=== PATIENT | female | born 1970 | race African-American/Black ===

== ENCOUNTER 2016-05-26 18:58 | Emergency (ER) | payer OTHER ==
--- NOTE | 2016-05-26 20:23 | ER Document Report ---
ED Medical Screen (RME) - General Chief Complaint: Abdominal Pain Stated Complaint: ABDOMINAL PAIN Mode of Arrival: Ambulatory Information source: Patient Notes: Patient arrives with complaints of lower abdominal pain that started a few hours ago. Patient states that about a week ago she had some lower abdominal cramping that seemed to go away. Today she had some severe lower abdominal pain. The pain seems to have improved significantly but she still complains of some achiness to the left lower abdomen as well as mid abdomen. She had some nausea with this. No fever. No vaginal bleeding or discharge. She does have an IUD in place. She denies a history of diverticulitis. On her limited abdominal exam completed out in triage, the patient is noted to have left lower and left mid abdominal tenderness on exam. Patient states that she has a prior history of hypertension, she was on medication for this, lost weight and didn't need medication anymore. States last time she had her blood pressure checked was about 8 months ago when she had her gallbladder removed. An initial examination was made on the patient as part of the triage process, and it was determined a more comprehensive evaluation was necessary. Initial labs were ordered and patient was transferred to another provider in the ED who assumed care and finished evaluation and plan. TRAVEL OUTSIDE OF THE [place] IN LAST 30 DAYS: No - Related Data Allergies/Adverse Reactions: No Known Allergies Allergy (Unverified 05/26/16 19:32) Past Medical History Renal/ Medical History: Denies: Hx Peritoneal Dialysis Physical Exam - Vital signs Vitals: Temp Pulse Resp BP Pulse Ox 99.2 F 90 18 227/117 H 99 05/26/16 19:25 05/26/16 19:25 05/26/16 19:25 05/26/16 19:25 05/26/16 19:25 Course - Vital Signs Vital signs: Temp Pulse Resp BP Pulse Ox 99.2 F 90 18 227/117 H 99 05/26/16 19:25 05/26/16 19:25 05/26/16 19:25 05/26/16 19:25 05/26/16 19:25
[2016-05-26 20:44] LABS: HEMATOCRIT 38.9 % (36.0-47.0); HGB HCT DIFFERENCE 0.1; MEAN CORPUSCULAR HEMOGLOBIN 29.2 pg (27.0-33.4); MEAN CORPUSCULAR HGB CONC 33.6 g/dL (32.0-36.0); MEAN CORPUSCULAR VOLUME 87 fl (80-97); RED BLOOD COUNT 4.47 10^6/uL (3.72-5.28); RED CELL DISTRIBUTION WIDTH 13.9 % (11.5-14.0); WHITE BLOOD COUNT 7.4 10^3/uL (4.0-10.5)
[2016-05-26 21:00] LABS: APPEARANCE,URINE CLEAR; BILIRUBIN,URINE NEGATIVE (NEGATIVE); GLUCOSE, URINE NEGATIVE (NEGATIVE); KETONES,URINE NEGATIVE (NEGATIVE); LEUKOCYTE ESTERASE,URINE NEGATIVE (NEGATIVE); NITRITE,URINE NEGATIVE (NEGATIVE); PROTEIN,URINE NEGATIVE (NEGATIVE); URINE SPECIFIC GRAVITY 1.006; UROBILINOGEN,URINE NEGATIVE mg/dL (<2.0)
[2016-05-26 21:01] LABS: ALANINE AMINOTRANSFERASE 31 U/L (9-52); ALBUMIN 4.3 g/dL (3.5-5.0); ALKALINE PHOSPHATASE 64 U/L (38-126); ANION GAP 13 (5-19); ASPARTATE AMINO TRANSFERASE 25 U/L (14-36); BILIRUBIN,DIRECT 0.1 mg/dL (0.0-0.4); BILIRUBIN,TOTAL 0.4 mg/dL (0.2-1.3); BLOOD UREA NITROGEN 12 mg/dL (7-20); CALCIUM 9.6 mg/dL (8.4-10.2); CARBON DIOXIDE 25 mmol/L (22-30); CHLORIDE 102 mmol/L (98-107); CREATININE RESULT 0.77 mg/dL (0.52-1.25); GLUCOSE 85 mg/dL (75-110); LIPASE 35.8 U/L (23-300); SODIUM 139.5 mmol/L (137-145); TOTAL PROTEIN 7.3 g/dL (6.3-8.2)
--- NOTE | 2016-05-26 22:46 | ER Document Report ---
ED GI/ - General Chief Complaint: Abdominal Pain Stated Complaint: ABDOMINAL PAIN Mode of Arrival: Ambulatory Information source: Patient TRAVEL OUTSIDE OF THE [place] IN LAST 30 DAYS: No - HPI Patient complains to provider of: Abdominal pain Notes: 05/26/16 22:44 Patient arrives with complaints of lower abdominal pain that started a few hours ago. Patient states that about a week ago she had some lower abdominal cramping that seemed to go away. Today she had some severe lower abdominal pain. The pain seems to have improved significantly but she still complains of some achiness to the left lower abdomen as well as mid abdomen. She had some nausea with this. No fever. No vaginal bleeding or discharge. She does have an IUD in place. She denies a history of diverticulitis. She denies any chest pain or shortness of breath. She denies any rash. She denies any injury. No blood thinners. She denies any other complaints at this time. - Related Data Allergies/Adverse Reactions: No Known Allergies Allergy (Unverified 05/26/16 19:32) Past Medical History - General Information source: Patient - Social History Smoking Status: Unknown if Ever Smoked Family History: Reviewed & Not Pertinent Patient has suicidal ideation: No Patient has homicidal ideation: No Renal/ Medical History: Denies: Hx Peritoneal Dialysis Review of Systems - Review of Systems -: Yes All other systems reviewed and negative Physical Exam - Vital signs Vitals: Temp Pulse Resp BP Pulse Ox 99.2 F 90 18 227/117 H 99 05/26/16 19:25 05/26/16 19:25 05/26/16 19:25 05/26/16 19:25 05/26/16 19:25 - Notes Notes: GENERAL: alert, cooperative, nontoxic, no distress. HEAD: normocephalic, atraumatic EYES: conjunctiva pink without discharge, no external redness or swelling. EARS: no external swelling, no external redness NOSE: atraumatic, no external swelling MOUTH/THROAT: mucous membranes moist and pink, posterior pharynx without erythema, swelling, exudate. No trismus or drooling. NECK: soft, supple, full range of motion, no meningismus. CHEST: no distress, lungs clear and equal throughout. No wheezing, rales, rhonchi. CARDIAC: regular rate and rhythm, no murmur, normal capillary refill, normal pulses. No peripheral edema noted. ABDOMEN: Soft, mild tenderness to palpation of the left lower quadrant and pubic area. No rebound tenderness or guarding. BACK: full range of motion, no CVA tenderness. EXTREMITIES: full range of motion of all extremities. No redness, no swelling. NEURO: alert and oriented -3, no focal deficits, full range of motion of all extremities. PYSCH: appropriate mood, affect. Patient is cooperative. SKIN: pink, warm, dry, no rash. Course - Re-evaluation Re-evalutation: 05/26/16 23:39 Patient is resting comfortably at this time. Labs and urine are unremarkable at this time. CT shows a 4.8 cm cystic structure near the left ovary. This point an ultrasound of the pelvis with Doppler has been ordered to rule out ovarian torsion. I discussed this with the patient who understands. She will continue to be monitored until we are able to obtain an ultrasound. 05/27/16 01:24 Patient's nontoxic appearing with stable vitals. Ultrasound shows a 5.3 cm left ovarian cyst and uterine fibroid. Discussed this with the patient. I instructed that she needs to follow-up with [facility] as they will need to reevaluate the cyst to ensure that is resolving. She should follow up sooner she develops increased pain, fever, persistent vomiting, or any further concerns. I will discharge patient home with prescription for Voltaren, as she is pain-free at this time. 05/27/16 01:26 The patient is noted to have elevated blood pressure during today's emergency department visit. The patient was informed of this finding. The patient was instructed that this may be related to pre-hypertension and requires further evaluation with a primary care provider. The patient has no hypertensive symptoms at this time. Patient has a history of hypertension. She states she was on medications in the past, but has not been on them for the last several months. Explained that she needs to follow-up with her family doctor regarding her blood pressure to have this reevaluated potentially be started back on medications. She has no hypertensive symptoms at this time. - Vital Signs Vital signs: Temp Pulse Resp BP Pulse Ox 99.2 F 82 18 187/103 H 98 05/26/16 19:25 05/26/16 23:45 05/26/16 23:45 05/26/16 23:45 05/26/16 23:45 - Laboratory Result Diagrams: 05/26/16 20:25 05/26/16 20:25 Laboratory results interpreted by me: 05/26/16 20:25 Urine Blood SMALL H - Diagnostic Test Radiology reviewed: Reports reviewed - CT of the pelvis shows a left ovarian cyst. Ultrasound of the pelvis shows no torsion with a 5.3 cm left ovarian cyst and uterine fibroid. Discharge - Discharge Clinical Impression: Left ovarian cyst Condition: Stable Disposition: HOME, SELF-CARE Instructions: Ovarian Cyst ([facility]) Additional Instructions: Take medications as prescribed as needed. Follow up with [facility] at the next available appointment. He will need a repeat ultrasound in 6-8 weeks to reevaluate the cyst on her left ovary. He should follow-up sooner for increased pain, fever, persistent vomiting, or for any further concerns. Your blood pressure was elevated during today's visit. Have this rechecked with your doctor. Prescriptions: Diclofenac Sodium [Voltaren] 75 mg PO BID #20 tablet.dr Referrals: MICHAEL EWING MD [Primary Care Provider] - Follow up as needed CHRISTINA CHAUDHARY MD [ACTIVE STAFF] - Follow up as needed
[2016-05-26 23:46] VITALS: BP 187/103
== END 2016-05-27 01:34 | disposition home or self-care (01) ==
LOC: ER 18:58
DX: N83.202 Unspecified ovarian cyst, left side (principal); R10.30 Lower abdominal pain, unspecified; D25.9 Leiomyoma of uterus, unspecified; Z97.5 Presence of (intrauterine) contraceptive device
CPT/HCPCS: 36415; 74177; 76830; 80053; 81001; 83690; 84703; 85027; 93976; 99284

== ENCOUNTER 2018-06-01 10:54 | Emergency (ER) | payer MEDICAID, OTHER ==
[2018-06-01] MEDS ORDERED: KETOROLAC TROMETHAMINE INJ/PF 30 MG/1 ML SDV IV ONE (11:39)
[2018-06-01] MEDS ORDERED: ONDANSETRON HCL INJ/PF 4 MG/2 ML SDV IV ONE (11:39)
--- NOTE | 2018-06-01 11:41 | ER Document Report ---
ED Medical Screen (RME) - General Chief Complaint: Pelvic Pain Stated Complaint: ABDOMINAL PAIN Time Seen by Provider: 06/01/18 11:32 Primary Care Provider: MICHAEL EWING MD [Primary Care Provider] - Follow up as needed Mode of Arrival: Medic Information source: Patient TRAVEL OUTSIDE OF THE [place] IN LAST 30 DAYS: No - HPI Patient complains to provider of: pelvic pain Notes: 06/01/18 11:39 Patient is here with complaints of pelvic pain. Patient was seen and evaluated on the for similar symptoms. Lab work was unremarkable, negative . CT showed a left-sided ovarian cyst. Ultrasound of the pelvis showed the same cyst with uterine fibroids and IUD. No sign of torsion. Sofia aguilar was given instructions to follow-up with [facility], she states that she was feeling better, therefore she did not follow-up. She states that this morning she had sudden worsening pain with some nausea vomiting. The pain does seem to have subsided somewhat at this time. Exam Nontoxic appearing, no distress. Mild lower abdominal tenderness on limited triage abdominal exam. Lungs clear and equal throughout, heart sounds normal. Plan CBC, CMP, lipase, urine, urine . I will allow the provider of the back to evaluate the patient's labs and evaluate the patient further to determine if advanced imaging is indicated on today's visit. An initial examination was made on the patient as part of the triage process, and it was determined a more comprehensive evaluation was necessary. Initial labs were ordered and patient was transferred to another provider in the ED who assumed care and finished evaluation and plan. - Related Data Allergies/Adverse Reactions: No Known Allergies Allergy (Unverified 05/26/16 19:32) Past Medical History - Past Medical History Cardiac Medical History: Reports: Hx Hypertension Renal/ Medical History: Denies: Hx Peritoneal Dialysis Past Surgical History: Reports: Hx Cholecystectomy Physical Exam - Vital signs Vitals: Temp Pulse Resp BP Pulse Ox 98.3 F 83 18 155/92 H 97 06/01/18 11:02 06/01/18 11:02 06/01/18 11:02 06/01/18 11:02 06/01/18 11:02 Course - Vital Signs Vital signs: Temp Pulse Resp BP Pulse Ox 98.3 F 83 18 155/92 H 97 06/01/18 11:02 06/01/18 11:02 06/01/18 11:02 06/01/18 11:02 06/01/18 11:02 Doctor's Discharge - Discharge Referrals: MICHAEL EWING MD [Primary Care Provider] - Follow up as needed
[2018-06-01 12:34] LABS: ABSOLUTE EOSINOPHILS # (AUTO) 0.1 10^3/uL (0.0-0.6); ABSOLUTE LYMPHOCYTES (AUTO) 1.7 10^3/uL (0.5-4.7); ABSOLUTE MONOCYTES (AUTO) 0.4 10^3/uL (0.1-1.4); ABSOLUTE NEUT (AUTO) 5.6 10^3/uL (1.7-8.2); BASOPHILS % (AUTO) 0.6 % (0-2); HEMATOCRIT 42.7 % (36.0-47.0); HEMOGLOBIN 14.4 g/dL (12.0-15.5); LYMPHOCYTES % (AUTO) 22.3 % (13-45); MEAN CORPUSCULAR HEMOGLOBIN 29.2 pg (27.0-33.4); MEAN CORPUSCULAR HGB CONC 33.6 g/dL (32.0-36.0); MEAN CORPUSCULAR VOLUME 87 fl (80-97); MONOCYTES % (AUTO) 4.9 % (3-13); PLATELET COUNT 326 10^3/uL (150-450); RED BLOOD COUNT 4.91 10^6/uL (3.72-5.28); SEGMENTED NEUTROPHILS % (AUTO) 71.2 % (42-78); TOTAL CELLS COUNTED % (AUTO) 100 %; WHITE BLOOD COUNT 7.8 10^3/uL (4.0-10.5)
[2018-06-01 12:40] LABS: APPEARANCE,URINE CLEAR; BILIRUBIN,URINE NEGATIVE (NEGATIVE); COLOR,URINE STRAW; GLUCOSE, URINE NEGATIVE (NEGATIVE); KETONES,URINE NEGATIVE (NEGATIVE); LEUKOCYTE ESTERASE,URINE NEGATIVE (NEGATIVE); NITRITE,URINE NEGATIVE (NEGATIVE); PROTEIN,URINE NEGATIVE (NEGATIVE); URINE SPECIFIC GRAVITY 1.009; UROBILINOGEN,URINE NEGATIVE mg/dL (<2.0)
[2018-06-01] MEDS ORDERED: METOCLOPRAMIDE HCL INJ/PF 10 MG/2 ML SDV IV ONE (14:45)
--- NOTE | 2018-06-01 14:55 | ER Document Report ---
ED General - General Chief Complaint: Pelvic Pain Stated Complaint: ABDOMINAL PAIN Time Seen by Provider: 06/01/18 11:32 Primary Care Provider: MICHAEL EWING MD [NO LOCAL MD] - Follow up as needed Mode of Arrival: Ambulatory Information source: Patient TRAVEL OUTSIDE OF THE [place] IN LAST 30 DAYS: No - HPI Patient complains to provider of: Pelvic pain Onset: This morning Onset/Duration: Sudden Severity: Severe Pain Level: 4 Associated symptoms: denies: Chills, Fever Exacerbated by: Movement Relieved by: Denies Similar symptoms previously: No Recently seen / treated by doctor: No Notes: 48-year-old -Filipino female comes in today with sudden onset lower abdominal/pelvic pain. She describes it as feeling like her uterus is tearing through her vagina. She has no fevers or chills but does have some nausea and vomiting from the pain. The note from the pit provider indicates that the patient was here not long ago but the patient denies that. Patient says that last visit here was at least a year ago. In any event, it does not appear that the patient to her recollection has had any, workup for this any time during the past month. - Related Data Allergies/Adverse Reactions: No Known Allergies Allergy (Unverified 05/26/16 19:32) Past Medical History - General Information source: Patient - Social History Smoking Status: Never Smoker Family History: Reviewed & Not Pertinent Patient has suicidal ideation: No Patient has homicidal ideation: No - Past Medical History Cardiac Medical History: Reports: Hx Hypertension Renal/ Medical History: Denies: Hx Peritoneal Dialysis Past Surgical History: Reports: Hx Cholecystectomy Review of Systems - Review of Systems Notes: Constitutional: No fevers. No chills. EENT: No eye redness. No eye pain. No ear pain. No sore throat. Cardiovascular: No chest pain. No palpitations. Respiratory: No cough. No shortness of breath. No respiratory distress. Gastrointestinal: No abdominal pain. Positive for nausea. Genitourinary: Atraumatic. No lesions. Positive for pelvic pain. Musculoskeletal: Atraumatic. No swelling. No deformities. Skin: No rash or lesions. Lymphatic: No swollen lymph nodes. Neurologic: No headache. No syncope. Psychiatric: No suicidal or homicidal ideation. Physical Exam - Vital signs Vitals: Temp Pulse Resp BP Pulse Ox 98.3 F 83 18 155/92 H 97 06/01/18 11:02 06/01/18 11:02 06/01/18 11:02 06/01/18 11:02 06/01/18 11:02 - Notes Notes: General: Well-developed, well-nourished. In no acute distress. Non-toxic appearing. Appears uncomfortable but nontoxic Cardiac: Well-perfused. Regular rate and rhythm. No murmurs, rubs, or gallops. Pulmonary: No respiratory distress. No cyanosis. Bilateral lung fiels are clear to auscultation. Abdominal: Bowel sounds are present in all 4 quadrants. Tenderness over the left lower quadrant, suprapubic region and mostly over the right lower quadrant. There is no guarding or rebound. HEENT: Head is atraumatic. Conjunctivae not reddened. No tearing. PERRL. EOMI. Orbits atraumatic. No periorbital swelling or erythema. Oropharynx is without erythema, swelling, or exudates. Neck: Supple. No adenopathy. No meningismus. Dermatologic: Warm with good turgor. No rash. Atraumatic. Chest: Atraumatic. No chest wall tenderness to palpation. Musculoskeletal: Moves all extremities well. No range of motion deficits. no muscular or joint tenderness. No paraspinal muscle tenderness. no midline spinal tenderness or step-off. Genitourinary: Examination deferred Neurologic: No gross neurologic deficits. Psychiatric: Normal mood. Course - Re-evaluation Re-evalutation: 06/01/18 14:59 Patient is requesting additional antinausea medicine but does not want any pain medication other than what she is already received. Not want Tylenol. Does not want narcotics. Patient is aware that she can change her mind and get what ever she needs once she notifies us. 06/01/18 17:34 Discussed patient's findings. Her labs were completely normal but she does have moderately sized right ovarian cyst and a fibroid uterus. She is not aware of either 1 of these. We will write her prescription for some Ultracet for pain and some Reglan for nausea. We will give her gynecology to follow-up with. - Vital Signs Vital signs: Temp Pulse Resp BP Pulse Ox 98.3 F 78 16 153/99 H 97 06/01/18 11:02 06/01/18 15:50 06/01/18 15:50 06/01/18 15:50 06/01/18 15:50 - Laboratory Result Diagrams: 06/01/18 12:16 06/01/18 15:05 Discharge - Discharge Clinical Impression: Right ovarian cyst Fibroid uterus Qualifiers: Uterine leiomyoma location: unspecified location Qualified Code(s): D25.9 - Leiomyoma of uterus, unspecified Condition: Good Disposition: HOME, SELF-CARE Prescriptions: Metoclopramide HCl [Reglan 10 mg Tablet] 1 tab PO Q6HP PRN #20 tablet PRN Reason: Tramadol HCl/Acetaminophen [Ultracet 37.5 mg/325 mg Tablet] 1 each PO Q6HP PRN #12 tablet PRN Reason: Referrals: MICHAEL EWING MD [NO LOCAL MD] - Follow up as needed KANDICE ARCE MD [ACTIVE STAFF] - Follow up as needed
[2018-06-01 15:41] LABS: ALANINE AMINOTRANSFERASE 29 U/L (9-52); ALBUMIN 4.3 g/dL (3.5-5.0); ALKALINE PHOSPHATASE 70 U/L (38-126); ANION GAP 7 (5-19); ASPARTATE AMINO TRANSFERASE 23 U/L (14-36); BILIRUBIN,DIRECT 0.2 mg/dL (0.0-0.4); BILIRUBIN,TOTAL 0.4 mg/dL (0.2-1.3); BLOOD UREA NITROGEN 18 mg/dL (7-20); CALCIUM 9.9 mg/dL (8.4-10.2); CARBON DIOXIDE 26 mmol/L (22-30); CHLORIDE 104 mmol/L (98-107); GLUCOSE 96 mg/dL (75-110); LIPASE 50.9 U/L (23-300); POTASSIUM 4.1 mmol/L (3.6-5.0); TOTAL PROTEIN 7.7 g/dL (6.3-8.2)
--- NOTE | 2018-06-01 16:46 | RADIOLOGY REPORT (SQ) ---
EXAM DESCRIPTION: CT ABD/PELVIS WITH IV ONLY COMPLETED DATE/TIME: 06/01/2018 4:09 pm REASON FOR STUDY: rlq pain with n/v. r/o appy COMPARISON: None. TECHNIQUE: CT scan of the abdomen and pelvis performed using helical scanning technique with dynamic intravenous contrast injection. No oral contrast. Images reviewed with lung, soft tissue, and bone windows. Reconstructed coronal and sagittal MPR images reviewed. Delayed images for evaluation of the urinary system also acquired. All images stored on PACS. All CT scanners at this facility use dose modulation, iterative reconstruction, and/or weight based d osing when appropriate to reduce radiation dose to as low as reasonably achievable (ALARA). [facility]: Dose Right [facility]: CareDose [facility]: Dose Right [facility]: Teradose 4D [facility]: Remicalm CONTRAST TYPE AND DOSE: contrast/concentration: Isovue 350.00 mg/ml; Total Contrast Delivered: 98.0 ml; Total Saline Delivered: 72.0 ml RENAL FUNCTION: None required. The patient is less than 50 years old. RADIATION DOSE: CT Rad equipment meets quality standard of care and radiation dose reduction techniq ues were employed. CTDIvol: 11.9 - 16.7 mGy. DLP: 1513 mGy-cm.. LIMITATIONS: None. FINDINGS: LOWER CHEST: No significant findings. No nodules or infiltrates. LIVER: Normal size. No masses. No dilated ducts. The hepatic and portal veins are patent. SPLEEN: Normal size. No focal lesions. PANCREAS: No masses. No significant calcifications. No adjacent inflammation or peripancreatic fluid collections. Pancreatic duct not dilated. GALLBLADDER: Prior cholecystectomy. ADRENAL GLANDS: No significant masses or asymmetry. RIGHT KIDNEY AND URETER: Lobulated contour to the right kidney may be on the basis of normal anatomi c variant versus prior inflammatory changes. No significant calcifications. No hydronephrosis or hy droureter. LEFT KIDNEY AND URETER: A lobulated contour to the left kidney may be on the basis of prior inflamma tory changes versus normal anatomic variant. No hydronephrosis or hydroureter. AORTA AND VESSELS: No aneurysm. No dissection. Renal arteries, SMA, celiac without stenosis. RETROPERITONEUM: No retroperitoneal adenopathy, hemorrhage or masses. BOWEL AND PERITONEAL CAVITY: Constipation. No free fluid. APPENDIX: The visualized appendix is unremarkable in appearance by CT examination. PELVIS: The uterus is bulky and enlarged and measures approximately 13.0 cm x 8.1 cm. Multiple mass es are identified within the uterus, some are heterogenous and complex in appearance, may represent u terine fibroids. IUD within the endometrial cavity. In the right lower quadrant of the abdomen, a thinly septated, hypoattenuated 4.0 cm x 2.7 cm mass, m ay represent right ovarian cysts, axial image 61, series 3. No free fluid. The urinary bladder is i ncompletely distended. ABDOMINAL WALL: No masses. No hernias. BONES: No significant or acute findings. OTHER: No other significant finding. IMPRESSION: 1. In the right lower quadrant of the abdomen, a thinly septated hypoattenuated mass wi th CT numbers in the water range. Considerations for these findings include right ovarian cysts. Fu rther evaluation with pelvic ultrasound suggested. 2. The uterus is bulky and enlarged with multiple masses identified. Considerations for this findin g includes uterine fibroids. 3. IUD within the endometrial cavity. 4. The visualized appendix is unremarkable in appearance by CT examination. COMMENT: 1. The results of this examination were discussed with emergency department provider on at 16:38 hours. TECHNICAL DOCUMENTATION: JOB ID: [id number] Quality ID # [id number]: Final reports with documentation of one or more dose reduction techniques (e.g., Au tomated exposure control, adjustment of the mA and/or kV according to patient size, use of iterative reconstruction technique) 2010 [employer]- All Rights Reserved Reading location - IP/workstation name: [email or web address]
--- NOTE | 2018-06-01 16:47 | RADIOLOGY REPORT (SQ) ---
EXAM DESCRIPTION: U/S NON OB PEL W/DOPPLER COMPLETED DATE/TIME: 06/01/2018 4:18 pm REASON FOR STUDY: rlq pain with n/v r/o torsion COMPARISON: 05/27/2016 TECHNIQUE: Dynamic and static grayscale images acquired of the pelvis via transabdominal approach an d recorded on PACS. Additional selected color Doppler and spectral images recorded. LIMITATIONS: None. FINDINGS: UTERUS: Numerous uterine fibroids. The uterus is heterogeneous in echotexture. The large st fibroid is measured 4.0 x 3.7 x 3.8 cm. ENDOMETRIAL STRIPE: IUD is in place. Interim each Ms. Measured at 2.8 mm. CERVIX: No nabothian cysts. RIGHT OVARY AND DOPPLER: Normal size. No worrisome masses. Normal arterial vascular flow without evid ence for torsion. There is a 2.8 x 2.7 x 2.3 cm cyst. LEFT OVARY AND DOPPLER: The left ovary is not visualized. FREE FLUID: None noted. OTHER: No other significant finding. MEASUREMENTS: UTERUS: 12.7 x 6.7 x 8.7 cm. ENDOMETRIAL STRIPE: 2.8 mm. RIGHT OVARY: 3.6 x 3.9 x 3.4 cm. LEFT OVARY: Not visualized. IMPRESSION: 1. Fibroid uterus. 2. Simple right ovarian cyst measured at 2.8 x 2.7 x 2.3 cm. 3. IUD is in place. TECHNICAL DOCUMENTATION: JOB ID: [id number] [employer]- All Rights Reserved Rev-06/26 Reading location - IP/workstation name: [email or web address]
[2018-06-01 17:50] VITALS: BP 147/88
== END 2018-06-01 17:50 | disposition home or self-care (01) ==
LOC: ER 10:54
DX: N83.201 Unspecified ovarian cyst, right side (principal); D25.9 Leiomyoma of uterus, unspecified; R10.2 Pelvic and perineal pain; R10.9 Unspecified abdominal pain; R10.30 Lower abdominal pain, unspecified; R11.2 Nausea with vomiting, unspecified; I10 Essential (primary) hypertension
CPT/HCPCS: 99284; 96374; 96375; 36415; 83690; 85025; 81025; 80053; 81001; 76856; 93976; 74177; J1885; J2765; J2405